=== PATIENT | male | born 2000 | race Caucasian/White ===

== ENCOUNTER 2024-07-13 16:10 | Emergency (ER) | payer BC, SELFPAY ==
[2024-07-13 16:13] VITALS: BP 146/98
--- NOTE | 2024-07-13 18:45 | ED.MUSCINJ ---
HPI-Injury
General
Chief Complaint: Musculo-Skeletal Complaint
Time Seen by Provider: 07/13/24 18:09
History of Present Illness-Injury
Initial Injury comments:
23-year-old male with out significant past medical history presenting for right hand injury. Patient reports prior to arrival he got his hand jammed in a log splinter, crushed his hand. He now reports pain to the entirety of the hand, most notable
at the thenar eminence. Notes pain with range of motion. Denies numbness or tingling. Denies additional injuries. Does note surgery to the fourth finger in the past. Denies additional acute medical complaints
Past History
Past History
ED Past Medical History: None
ED Past Surgical History: None
Patient has exhibited threatening behavior?: No
Social History
Tobacco: Smoker
Phy Exam
Physical Exam
Physical Exam:
General: Well-appearing, no clinical signs of dehydration, nontoxic and in no acute distress
HEENT: protecting airway
Neck: appears supple
CV: Normal heart rate
Resp: No accessory muscle use, no increased work of breathing
Abd: no distension
Extremities: Generalized swelling to the right hand, most notable at the thenar eminence with generalized pain. No focal tenderness to the snuffbox. Range of motion is globally intact, however limited secondary to pain and swelling. Compartments
of the hand are soft. Distal sensation and pulses are intact. Superficial abrasions without deep laceration or cut. No erythema or warmth
Neuro: alert, no focal neurologic deficit
: deferred
Rectal: deferred
Psych: Normal affect
Skin: Intact
Injury Course
Orders/Labs/Results
Orders:
Orders
07/13/24 16:16
CR Hand - Right Min 3 Views Urgent
Comment:
Reason For Exam: pain, swelling
07/13/24 18:36
Splints/Slings/Crut- Treatment ONCE
MDM/Problems Addressed
MDM/Problems Addressed:
23-year-old male without significant past medical history presenting for right hand pain after his hand got stuck in a log splitter. Vital signs are significant for mild tachycardia.
On exam patient is well-appearing, no acute distress or discomfort. Hand is notably swollen, however compartments are soft. Suspect soft tissue injury versus fracture. No neurovascular compromise. Without present concern for compartment
syndrome. Patient had x-ray prior to my assessment, without evidence of fracture or malalignment. Will place patient in a splint for swelling and comfort. Otherwise feel stable for discharge with outpatient follow-up. Will provide orthopedic
follow-up. Advised Tylenol or Motrin as needed for pain and ice for swelling. Return precautions discussed and patient verbalized understanding
*Critical Care Note
Total Time (30-74mins, 75-104mins- exclusive of procedures): Not Applicable
ED Attending Note
-
Portions of this chart may have been created with voice recognition software.� Occasional wrong word or��sound alike� substitutions may have occurred due to the inherent limitations of voice recognition software.
Discharge Plan
Departure
Prescriptions:
No Action
prednisone 20 MG tablet
20 mg PO BID Qty: 10 0RF
ondansetron [Zofran ODT] 8 MG tablet,disintegrating
8 mg PO TID PRN (Reason: nausea/vomiting) Qty: 20 0RF
cefadroxil [Duricef] 500 MG capsule
500 mg PO BID Qty: 20 0RF
Referrals:
Tanesha Marshall DO [Family Provider] -
Interventions
Interventions:
*Risk Screen - Suicide Last Done: 07/13/24 16:13
*General Assessment Last Done: 07/13/24 16:13
*ED COVID-19 Vaccine History Last Done: 07/13/24 16:13
Discharge Date and Time
Print Language: SCOTTISH
[2024-07-13 18:51] VITALS: BMI 25.1
== END 2024-07-13 19:04 | disposition home or self-care (01) ==
LOC: EMR 16:10
PROVIDERS: EMERGENCY PHYSICIAN Student in an Organized Health Care Education/Training Program; FAMILY PHYSICIAN Family Medicine
DX: S60.511A Abrasion of right hand, initial encounter (principal); M79.89 Other specified soft tissue disorders; W31.89XA Contact with other specified machinery, initial encounter; R00.0 Tachycardia, unspecified; F17.200 Nicotine dependence, unspecified, uncomplicated
CPT/HCPCS: 99283; 29125; 73130